=== PATIENT | male | born 1995 | race American Indian/Alaskan Native ===

== ENCOUNTER 2017-07-29 15:02 | Emergency (ER) | payer OTHER ==
[2017-07-29] MEDS ORDERED: MORPHINE ONE (15:09)
[2017-07-29] MEDS ORDERED: ZOFRAN ONE (15:09)
[2017-07-29] MEDS ORDERED: NACL 0.9% 1000 ML 1,000 ML IV ONE (15:13)
[2017-07-29] MEDS ORDERED: MORPHINE IV ONE (15:13)
[2017-07-29] MEDS ORDERED: ZOFRAN IV ONE (15:13)
[2017-07-29] MEDS ORDERED: ceFAZolin 2 GM in NACL 0.9% 100 ML IV ONE (15:15)
[2017-07-29 15:17] VITALS: BP 146/76
[2017-07-29 15:21] LABS: Basophils # (Auto) 0.1 K/mm3 (0.0-0.1); Basophils % (Auto) 1.1 % (0.0-1.8); Eosinophils # (Auto) 0.1 K/mm3 (0.0-0.4); Eosinophils % (Auto) 1.9 % (0.0-4.3); Hematocrit 44.6 % (35.5-45.6); Lymphocytes # (Auto) 4.1 K/mm3 (1.2-5.4); Lymphocytes % (Auto) 53.3 % (13.4-35.0); Mean Corpuscular HGB Conc 34 % (32-34); Mean Corpuscular Hemoglobin 30 pg (28-32); Mean Corpuscular Volume 88 fl (84-94); Monocytes # (Auto) 0.6 K/mm3 (0.0-0.8); Platelet Count 288 K/mm3 (140-440); Red Blood Count 5.05 M/mm3 (3.65-5.03)
[2017-07-29] MEDS ORDERED: NACL 0.9% 500 ML IR ONE (15:24)
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
[2017-07-29] MEDS ORDERED: ATIVAN IV ONE (15:31)
[2017-07-29 15:45] LABS: Alanine Aminotransferase 19 units/L (7-56); Albumin 4.3 g/dL (3.9-5); BUN/Creatinine Ratio 11; Blood Urea Nitrogen 10 mg/dL (9-20); Calcium 9.3 mg/dL (8.4-10.2); Hemolysis Index 21
[2017-07-29] MEDS ORDERED: ANCEF/STERILE WATER 2 GM/20 ML 2 GM/20 ML SYRINGE IV ONE (16:30)
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
[2017-07-29] MEDS ORDERED: NAPROSYN PO ONE (17:37)
== END 2017-07-29 18:33 | disposition home or self-care (01) ==
LOC: ED 15:02
DX: S71.101A Unspecified open wound, right thigh, initial encounter (principal); F17.200 Nicotine dependence, unspecified, uncomplicated; Z88.0 Allergy status to penicillin; Z88.2 Allergy status to sulfonamides; W34.00XA Accidental discharge from unspecified firearms or gun, initial encounter; Y93.89 Activity, other specified; Y92.89 Other specified places as the place of occurrence of the external cause; Y99.8 Other external cause status
CPT/HCPCS: 36415; 73552; 73701; 80053; 85025; 96361; 96374; 96375; 99285; G0480; J0690; J2060; J2270; J2405; J7030; Q9967; 80320